=== PATIENT | female | born 1960 | race Caucasian/White ===

== ENCOUNTER 2017-04-11 14:35 | Emergency (ER) | payer OTHER ==
[2017-04-11 15:19] VITALS: BMI 31.7
[2017-04-11] MEDS ORDERED: ACETAMINOPHEN 1000 MG/100 ML VIAL (NON FORMULARY) IVPB ONE (15:28)
[2017-04-11] MEDS ORDERED: METOCLOPRAMIDE HCL INJECTION 10 MG/2 ML VIAL IVPB ONE (15:28)
[2017-04-11] MEDS ORDERED: ACETAMINOPHEN INJECTION 100 ML IVPB ONE (16:08)
[2017-04-11] MEDS ORDERED: METOCLOPRAMIDE HCL INJECTION 10 MG/2 ML VIAL ONE (16:08)
[2017-04-11 16:22] LABS: BASOPHIL 0.9 % (0-2.0); EOSINOPHIL 0.9 % (0-4.5); MCH 30.4 pg (25.7-33.7); MCHC 33.6 g/dl (32.0-36.0); MEAN CELL VOLUME 90.6 fl (80-96); MEAN PLT VOLUME 8.7 fl (7.5-11.1); NEUTROPHILS 59.1 % (42.8-82.8); PLATELET COUNT 239 K/MM3 (134-434); RDW 13.5 % (11.6-15.6)
[2017-04-11 16:23] LABS: URINE APPEARANCE CLEAR; URINE BILIRUBIN NEGATIVE (NEGATIVE); URINE BLOOD NEGATIVE (NEGATIVE); URINE COLOR STRAW; URINE GLUCOSE (UA) NEGATIVE (NEGATIVE); URINE KETONE NEGATIVE (NEGATIVE); URINE LEUK ESTERASE NEGATIVE (NEGATIVE); URINE NITRITE NEGATIVE (NEGATIVE); URINE PROTEIN NEGATIVE (NEGATIVE); URINE UROBILINOGEN NEGATIVE mg/dL (0.2-1.0)
--- NOTE | 2017-04-11 16:36 | PDOC ---
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 The patient reports gradual onset, squeezing headache that is exacerbated with positional head changes. Patient denies light or sound sensitivity. She denies any weakness, numbness or tingling. Patient presents to the ED for further evaluation. Pacemaker: Biotronik She denies chest pain or dizziness. She denies fever, chills, abdominal pain, nausea, vomit, diarrhea or constipation. She denies dysuria, frequency, urgency or hematuria. Allergies: NKA Past surgical history: PPM Social history: current everyday smoker PCP: None <Lianet Jimenez - Last Filed: 04/11/17 17:08> <Faheem Hickman - Last Filed: 04/11/17 17:25> - General Chief Complaint: Headache Stated Complaint: GENERAL MALAISE Time Seen by Provider: 04/11/17 14:55 Past History <Lianet Jimenez - Last Filed: 04/11/17 17:08> - Past Medical History Cardiac Disorders: Yes (Bradycardia- PPM) Diabetes: Yes HTN: Yes Hypercholesterolemia: Yes Other medical history: Arthritis, GOUT - Psycho/Social/Smoking Cessation Hx Anxiety: No Suicidal Ideation: No Smoking History: Current every day smoker Have you smoked in the past 12 months: Yes Number of Cigarettes Smoked Daily: 8 Information on smoking cessation initiated: No Hx Alcohol Use: No Drug/Substance Use Hx: No <Faheem Hickman - Last Filed: 04/11/17 17:25> - Past Medical History Allergies/Adverse Reactions: Allergies Allergy/AdvReac Type Severity Reaction Status Date / Time No Known Allergies Allergy Verified 04/11/17 15:05 Home Medications: Ambulatory Orders Allopurinol [Zyloprim -] 100 mg PO DAILY 04/11/17 Aspirin [Aspirin EC] 81 mg PO DAILY 04/11/17 Atorvastatin Ca [Lipitor] 20 mg PO HS 04/11/17 Losartan Potassium 50 mg PO DAILY 04/11/17 Metformin HCl 500 mg PO DAILY 04/11/17 Review of Systems - Review of Systems Able to Perform ROS?: Yes Comments:: 04/11/17 16:39 GENERAL/CONSTITUTIONAL: No fever or chills. No weakness. HEAD, EYES, EARS, NOSE AND THROAT: No change in vision. No ear pain or discharge. No sore throat. CARDIOVASCULAR: No chest pain or shortness of breath. RESPIRATORY: No cough, wheezing, or hemoptysis. GASTROINTESTINAL: No nausea, vomiting, diarrhea or constipation. GENITOURINARY: No dysuria, frequency, or change in urination. MUSCULOSKELETAL: No joint or muscle swelling or pain. No neck or back pain. SKIN: No rash NEUROLOGIC: + headache. No vertigo, loss of consciousness, or change in strength /sensation. ENDOCRINE: No increased thirst. No abnormal weight change. HEMATOLOGIC/LYMPHATIC: No anemia, easy bleeding, or history of blood clots. ALLERGIC/IMMUNOLOGIC: No hives or skin allergy. <Lianet Jimenez - Last Filed: 04/11/17 17:08> *Physical Exam - Vital Signs Last Vital Signs Temp Pulse Resp BP Pulse Ox 97.8 F 88 16 147/80 96 04/11/17 15:01 04/11/17 15:01 04/11/17 15:01 04/11/17 15:01 04/11/17 15:01 - Physical Exam Comments: 04/11/17 16:40 GENERAL: Awake, alert, and fully oriented, in no acute distress HEAD: No signs of trauma EYES: PERRLA, EOMI, sclera anicteric, conjunctiva clear ENT: Auricles normal inspection, hearing grossly normal, nares patent, oropharynx clear without exudates. Moist mucosa NECK: Normal ROM, supple, no lymphadenopathy, JVD, or masses LUNGS: Breath sounds equal, clear to auscultation bilaterally. No wheezes, and no crackles HEART: Regular rate and rhythm, normal S1 and S2, no murmurs, rubs or gallops ABDOMEN: Soft, nontender, normoactive bowel sounds. No guarding, no rebound. No masses EXTREMITIES: Normal range of motion, no edema. No clubbing or cyanosis. No cords, erythema, or tenderness. NEUROLOGICAL: Cranial nerves II through XII intact. Normal speech, normal gait. 5/5 strength in upper and lower extremities. Sensation intact throughout all extremities. SKIN: +L sided pacemaker placed. Warm, Dry, normal turgor, no rashes or lesions noted. <Lianet Jimenez - Last Filed: 04/11/17 17:08> - Vital Signs Last Vital Signs Temp Pulse Resp BP Pulse Ox 97.8 F 88 16 147/80 96 04/11/17 15:01 04/11/17 15:01 04/11/17 15:01 04/11/17 15:01 04/11/17 15:01 <Faheem Hickman - Last Filed: 04/11/17 17:25> Heart Score/ECG Review #1 ECG reviewed & interpreted by me at: 17:00 04/11/17 16:55 NSR 75 with 1st degree AV block, no std/steve, TWI III, QTC 431 msec <Faheem Hickman - Last Filed: 04/11/17 17:25> ED Treatment Course - LABORATORY CBC & Chemistry Diagram: 04/11/17 16:16 04/11/17 16:16 - Medications Given in the ED: ED Medications Discontinued Medications Generic Name Dose Route Start Last Admin Trade Name Freq PRN Reason Stop Dose Admin Acetaminophen 1,000 mg 04/11/17 15:28 04/11/17 16:16 Ofirmev Injection - IVPB 04/11/17 15:29 1,000 mg ONCE ONE Administration Metoclopramide HCl 10 mg 04/11/17 15:28 04/11/17 16:16 Reglan Injection - IVPB 04/11/17 15:29 10 mg ONCE ONE Administration <Lianet Jimenez - Last Filed: 04/11/17 17:08> - LABORATORY CBC & Chemistry Diagram: 04/11/17 16:16 04/11/17 16:16 - Medications Given in the ED: ED Medications Discontinued Medications Generic Name Dose Route Start Last Admin Trade Name Freq PRN Reason Stop Dose Admin Acetaminophen 1,000 mg 04/11/17 15:28 04/11/17 16:16 Ofirmev Injection - IVPB 04/11/17 15:29 1,000 mg ONCE ONE Administration Metoclopramide HCl 10 mg 04/11/17 15:28 04/11/17 16:16 Reglan Injection - IVPB 04/11/17 15:29 10 mg ONCE ONE Administration <Faheem Hickman - Last Filed: 04/11/17 17:25> Medical Decision Making - Medical Decision Making 04/11/17 16:51 A portion of this note was documented by scribe services under my direction. I have reviewed the details of the note, within reason, and agree with the documentation with the following case summary and management plan written by me. Patient treated in the ED. . Nursing notes are reviewed and incorporated into the medical decision-making. Vital signs reviewed. Peripheral IV access obtained by the nurse, laboratory studies are drawn and sent, reviewed and interpreted by myself. Vital Signs Temp Pulse Resp BP Pulse Ox 97.8 F 88 16 147/80 96 04/11/17 15:01 04/11/17 15:01 04/11/17 15:01 04/11/17 15:01 04/11/17 15:01 56-year-old female with past medical history of bradycardia status post pacemaker placement on April 01, Biotronik, diabetes, hypertension, hyperlipidemia, arthritis, gout, coronary disease status post [place], stroke with no residual deficits, rheumatic fever presents with headache since April 02. Patient reports a tension-like moderate headache. Denies photophobia photophobia fevers or neck pain. States she is not taking any medications. She reported a year ago she had a similar type headache that resolved with IV medications which is at the hospital as never been formally diagnosed with migraines. Denies any neurological deficits. Denies chest pain shortness of breath. I suspect that the patient is likely have tension-like headache or perhaps a migraine. I do NOT suspect stroke, cardiac disease pathology at this time. Will treat headache, check blood works and labs. Pt defers head CT at this time as she does not want the radiation and I agree that we can hold off, unless if the headache worsens. Pain control and reassess. 04/11/17 16:56 Pt reports her headache improved significantly with tylenol and reglan. 04/11/17 17:23 Headache resolved. Labs and UA reviewed. NO acute findings. Discharge diagnosis: tension headache I discussed the physical exam findings, ancillary test results and final diagnoses with the patient. I answered all of the patient's questions. The patient was satisfied with the care received and felt comfortable with the discharge plan and treatment plan. The patient will call their primary care physician within 24 hours to arrange follow-up and will return to the Emergency Department with any new, persistant or worsening symptoms. <Faheem Hickman - Last Filed: 04/11/17 17:25> *DC/Admit/Observation/Transfer - Attestations Scribe Attestion: 04/11/17 16:40 Documentation prepared by Lianet Jimenez, acting as medical services manager for Faheem Hickman MD <Lianet Jimenez - Last Filed: 04/11/17 17:08> - Discharge Dispostion Admit: No <Faheem Hickman - Last Filed: 04/11/17 17:25> Diagnosis at time of Disposition: Tension headache - Discharge Dispostion Disposition: HOME Condition at time of disposition: Good - Referrals Referrals: STAFF,NOT ON [Primary Care Provider] - - Patient Instructions Printed Discharge Instructions: DI for Headache Additional Instructions: Take 650 mg tylenol every 4 hours as needed for headache. Follow up with your doctor.
[2017-04-11 16:59] LABS: ALBUMIN 3.9 g/dl (3.4-5.0); ALK PHOS 123 U/L (45-117); ANION GAP 6 (8-16); BILIRUBIN,TOTAL 0.2 mg/dL (0.2-1.0); CALCIUM 9.4 mg/dL (8.5-10.1); CO2 30 mmol/L (21-32); CPK 98 IU/L (26-192); CREATININE 1.1 mg/dL (0.55-1.02); GLUCOSE,RANDOM 108 mg/dL (74-106); SGOT/AST 26 U/L (15-37); SGPT/ALT 50 U/L (12-78); TOT PROT 7.6 g/dl (6.4-8.2)
[2017-04-11 17:01] LABS: TROPONIN I < 0.02 ng/ml (0.00-0.05)
[2017-04-11 17:32] VITALS: BP 142/88; PULSE 86; TEMP 98.4
--- NOTE | 2017-04-12 17:46 | EKG ---
Test Reason : Blood Pressure : / mmHG Vent. Rate : 074 BPM Atrial Rate : 074 BPM P-R Int : 270 ms QRS Dur : 088 ms QT Int : 388 ms P-R-T Axes : 040 004 003 degrees QTc Int : 430 ms SINUS RHYTHM WITH 1ST DEGREE A-V BLOCK NOSPECIFIC ST-TWAVE ABNORMALITIES NO PREVIOUS ECGS AVAILABLE NO CLINICAL INFORMATION IS AVAILABLE Confirmed by MELLISSA POWERS MD ([id number]) on 04/12/2017 5:45:30 PM Referred By: Confirmed By:MELLISSA POWERS MD
== END 2017-04-11 17:32 | disposition home or self-care (01) ==
LOC: JER 14:35
PROC: 3E033NZ Introduction of Analgesics, Hypnotics, Sedatives into Peripheral Vein, Percutaneous Approach (ICD-10-PCS; principal; 2017-04-11)
PROC: 3E033GC Introduction of Other Therapeutic Substance into Peripheral Vein, Percutaneous Approach (ICD-10-PCS; 2017-04-11)
DX: G44.209 Tension-type headache, unspecified, not intractable (principal); I25.2 Old myocardial infarction; I10 Essential (primary) hypertension; E11.9 Type 2 diabetes mellitus without complications; Z79.84 Long term (current) use of oral hypoglycemic drugs; M10.9 Gout, unspecified; M12.9 Arthropathy, unspecified; Z86.73 Personal history of transient ischemic attack (TIA), and cerebral infarction without residual deficits; Z95.0 Presence of cardiac pacemaker
CPT/HCPCS: 36415; 80053; 81003; 84484; 85025; 87086; 93005; 93010; 96374; 96375; 99285-25